=== PATIENT | female | born 1955 | race Caucasian/White ===

== ENCOUNTER 2020-07-14 06:02 | Day surgery (SDC) | payer OTHER, SELFPAY ==
--- NOTE | 2020-07-10 12:06 | EKG12_ITS ---
Test Reason : PREOP Blood Pressure : / mmHG Vent. Rate : 084 BPM Atrial Rate : 084 BPM P-R Int : 152 ms QRS Dur : 086 ms QT Int : 378 ms P-R-T Axes : 023 028 036 degrees QTc Int : 446 ms Normal sinus rhythm Normal ECG Confirmed by SERENA TRIPATHI, MARILIN ([id number]), department editor REESE GUZMAN ([id number]) on 07/14/2020 9:30:01 AM Referred By: Velma Brian Confirmed By:MARILIN LYONS MD
[2020-07-10 12:07] LABS: Hematocrit 40.1 % (37-47); Mean Corp Hgb Conc 32.4 g/dL (32-36); Mean Corpuscular Hgb 30.8 pg (27.0-32.0); Mean Platelet Vol. 9.4 fl (6.2-12.0); Platelet Count 285 K/mm3 (150-450); RBC Distribution Width CV 13.6 % (11.6-14.6); RBC Distribution Width SD 47.7 fl (35.1-43.9); Red Blood Count 4.22 M/mm3 (4.2-5.4); White Blood Count 5.9 K/mm3 (4.4-11.0)
[2020-07-10 12:26] LABS: Partial Thromboplast Time 23.3 Seconds (24.1-36.2); Prothrombin Time (Protime)PT. 12.4 SECONDS (11.7-14.9)
[2020-07-10 12:40] LABS: AST(SGOT) 18 U/L (15-37); Alanine Aminotransfer ALT/SGPT 31 U/L (13-56); Albumin, Serum 3.6 g/dL (3.2-5.0); Alkaline Phosphatase 100 U/L (45-117); Anion Gap 6 (5-15); BUN 10 mg/dL (7-18); BUN/Creat Ratio 12.4 RATIO (10-20); Bilirubin, Direct 0.08 mg/dL (0.00-0.30); Calcium,Total 8.6 mg/dL (8.5-10.1); Chloride 107 mmol/L (98-107); Creatinine, Serum 0.81 mg/dL (0.55-1.02); EST Glomerular Filtration Rate 76 mL/min (>60); Est Glom Filt Rate - Afr Amer 92 mL/min (>60); Globulin 3.6 g/dL (2.2-4.2); Glucose 139 mg/dL (74-106); Potassium 3.6 mmol/L (3.5-5.1); Protein, Total 7.2 g/dL (6.4-8.2); Sodium Level 138 mmol/L (136-145); Thyroid Stim Hormone (TSH) 1.69 uIU/mL (0.358-3.74)
[2020-07-14 06:29] VITALS: BP 120/59; PULSE 78; RESP 16; TEMP 36.6; O2SAT 97; BMI 34.4
[2020-07-14] MEDS: Lactated Ringers 1,000 ML 100 ML IV (06:36)
--- NOTE | 2020-07-14 07:30 | BLA_PTH ---
PATIENT: GIAN SARKAR [place] [facility] [id number] AGE/SX: 64/F ROOM: RE07/14/[address]: Dr. 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 Negative for malignancy. See comment. STANLEY:regan 07/15/20 COMMENT Mild eosinophilic infiltrates are also noted. Detrusor muscle is present in the specimen. MICROSCOPIC DESCRIPTION Slides are reviewed. GROSS DESCRIPTION Received in fixative is one container labeled with the patient's name and designated bladder biopsy. The specimen consists of three irregular fragments of light street soft tissue that in aggregate measure 0.4 x 0.2 x 0.1 cm. The specimen is totally submitted in one cassette. / SJ:rg 07/14/20 TC:3 CPT: 58723
--- NOTE | 2020-07-14 07:31 | PCM.OPRPT ---
Problem List (1) Interstitial cystitis (chronic) without hematuria Status: Chronic (2) Vaginismus Status: Acute (3) Urgency of micturition Status: Acute Report of Operation Date of Procedure: 07/14/20 Pre-Operative Diagnosis: interstitial cystitis without hematuria, vaginismus, urinary urgency Post-Operative Diagnosis: same, Hunner's ulcers Surgery/Procedure Performed:: cystoscopy, bladder biopsy with fulguration for hemostasis and tissue treatment, pelvic exam under anesthesia Type of Anesthesia:: General Description of Procedure: The patient is a 64-year-old female with a history of interstitial cystitis who is having a difficult time with significant urgency and pain. She also struggles with vaginismus. She is unable to undergo an exam in the office. She now presents for cystoscopic evaluation and pelvic exam under anesthesia with possible bladder biopsy possible hydrodistention. Patient was taken to the operating room and placed on the operating room table. Anesthesia monitored the head, neck, airway, IV access and vital signs throughout the case. Once anesthesia was appropriately administered the patient was placed into dorsal lithotomy position and was prepped and draped in usual sterile fashion. A pelvic examination revealed no evidence of pelvic organ prolapse. There is vaginal atrophy present. There were no trigger points identified. There is no stool in the rectal vault. There is no palpable mass. The cystoscope was inserted through the urethra under direct visualization into the urinary bladder. The bladder mucosa was visualized in its entirety. 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 3 biopsies were taken and the areas were fulgurated for hemostatic control and tissue treatment. A fourth biopsy was performed in the biopsy specimen was lost. This area was also fulgurated. The patient's bladder was then emptied and she was awakened and taken to the recovery room in good condition. There were no complications during this procedure. Grafts/Implants Used: none - Complications None - Admit VTE Documentation VTE Present on Admission: Yes VTE Mechan Device Prophylaxis: SCD's VTE Pharm Prophylaxis ordered?: No Reason prophylaxis not ordered:: Treatment Not Indicated
[2020-07-14] MEDS: Cefazolin 2 GM in 0.9% Normal Saline 100 ML IV (07:35)
[2020-07-14] MEDS: Lubricating Jelly 60 GM Tube 30 GM TOPICAL (07:50)
[2020-07-14 08:06] VITALS: BP 120/59; BP 82/51; PULSE 70; RESP 16; TEMP 36.2; O2SAT 93
[2020-07-14 08:09] VITALS: BP 114/57; BP 120/59; PULSE 76; RESP 16; O2SAT 95
--- NOTE | 2020-07-14 08:09 | PCM.DC.URO ---
Discharge Diet: No Restrictions Discharge Activity: Return to Normal Activity, May not drive while taking narcotic pain medications., May Shower, May Take a Tub Bath May resume sexual activity in: No Restrictions Call your doctor if you observe: Fever of 101 or Higher, Inability to urinate, Inability to have a bowel movement Allergies/Adverse Reactions: Allergies adhesive tape Allergy (Verified 07/08/20 08:40) Rash sulfamethoxazole [From Bactrim] Adverse Reaction (Verified 07/08/20 08:40) Nausea/Vom/Diarrhea trimethoprim [From Bactrim] Adverse Reaction (Verified 07/08/20 08:40) Nausea/Vom/Diarrhea Medications to take at Discharge Acetaminophen [Tylenol Arthritis] 1,300 mg PO DAILY 07/08/20 Albuterol Aerosols [Ventolin Aerosols] 2.5 mg INHALATION Q4H PRN PRN 07/08/20 Aloe Vera 75 mg PO DAILY 07/08/20 Amlodipine [Norvasc] 10 mg PO QHS 07/08/20 Atorvastatin Calcium [Lipitor] 10 mg PO SUWE 07/08/20 Cholecalciferol (Vitamin D3) [Vitamin D3] 150 mcg PO DAILY 07/08/20 Famotidine [Acid Controller] 20 mg PO PRN PRN 07/08/20 Fesoterodine Fumarate [Toviaz] 8 mg PO QHS 07/08/20 Fluoxetine [Prozac] 30 mg PO QHS 07/08/20 Fluticasone 0.05% [Flonase Nasal [place]] 1 spray NASAL DAILY 07/08/20 Levothyroxine Sodium [Synthroid] 25 mcg PO DAILY 07/08/20 Losartan Potassium [Cozaar] 25 mg PO QHS 07/08/20 Multivit-Min/Folic Acid/Biotin [Hair, Skin and Nails Caplet] 3 ea PO DAILY 07/08/20 Omeprazole 20 mg PO QHS 07/08/20 traZODone [Desyrel] 100 - 150 mg PO QHS 07/08/20 Cephalexin [Keflex] 500 mg PO Q12 3 Days #6 cap 07/14/20 Oxycodone HCl/Acetaminophen [Percocet 5/325] 1 tablet PO Q8H PRN PRN 7 Days #10 tablet 07/14/20 Phenazopyridine HCl [Pyridium] 200 mg PO TID PRN PRN 7 Days #30 tab 12/01/20 The following prescriptions were given: Cephalexin [Keflex] 500 mg PO Q12 3 Days #6 cap Transmission Status: Pending to [id number] Oxycodone HCl/Acetaminophen [Percocet 5/325] 1 tablet PO Q8H PRN PRN 7 Days #10 tablet PRN Reason: Pain Transmission Status: Received by [facility][id number] Phenazopyridine HCl [Pyridium] 200 mg PO TID PRN PRN 7 Days #30 tab PRN Reason: Bladder Spasms Transmission Status: Pending to [facility][id number] Primary Care Physician: CHARLIE CARBALLO [Other] Test Results: Test results from this visit will be discussed in further detail at your follow-up appointment, if applicable. Please Follow Up With: Velma Brian MD When: call for appt to be seen in 1 week. Proposed Discharge Date: 07/14/20
[2020-07-14 08:15] VITALS: BP 106/65; BP 120/59; PULSE 76; RESP 16; O2SAT 96
[2020-07-14 08:25] VITALS: BP 120/59; BP 125/76; PULSE 73; RESP 16; TEMP 36.3; O2SAT 94
[2020-07-14] MEDS: Phenazopyridine 95 MG Tablet 190 MG PO (08:36)
[2020-07-14] MEDS: Acetaminophen 325 MG Tablet PO (08:55)
[2020-07-14] MEDS: oxyCODONE 5 MG Tablet PO (08:55)
[2020-07-14 09:30] VITALS: BP 113/59; BP 120/59; PULSE 82; RESP 16; TEMP 36.2; O2SAT 94
== END 2020-07-14 09:51 | disposition home or self-care (01) ==
LOC: SDC 06:05 → AC 06:05
PROVIDERS: Anesthesiology; Referring Provider Urology; Visit Provider Urology
PROC: 0TBB8ZX Excision of Bladder, Via Natural or Artificial Opening Endoscopic, Diagnostic (ICD-10-PCS; CPT 52204; principal; 2020-07-14 07:20)
DX: N30.10 Interstitial cystitis (chronic) without hematuria (principal); N94.2 Vaginismus; Z20.828 Contact with and (suspected) exposure to other viral communicable diseases; I10 Essential (primary) hypertension; K21.9 Gastro-esophageal reflux disease without esophagitis; E78.00 Pure hypercholesterolemia, unspecified; E03.9 Hypothyroidism, unspecified; M79.7 Fibromyalgia; J45.909 Unspecified asthma, uncomplicated; N32.81 Overactive bladder; Z78.0 Asymptomatic menopausal state; Z87.440 Personal history of urinary (tract) infections; Z79.899 Other long term (current) drug therapy
CPT/HCPCS: 00910; 52204; 57410; 36415; 80048; 80076; 84443; 85027; 85610; 85730; 87426; 88305; 93005; C9803; J7120; J2405

== ENCOUNTER 2022-04-14 05:46 | Day surgery (SDC) | payer MEDICARE, OTHER, SELFPAY ==
[2022-04-14] VITALS (8 sets, daily range): BP systolic 101–131; BP diastolic 52–95; PULSE 70–84; RESP 16–18; TEMP 36.1–36.7; O2SAT 63–95; BMI 35.4
--- NOTE | 2022-04-14 | BLA_PTH ---
PATIENT: GIAN SARKAR [place] [facility] [place][id number] AGE/SX: 66/F ROOM: RE04/14/[address]: Dr. 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 Minimal acute inflammation. Focal epithelial atypia, favor reactive. Negative for malignancy. See comment. STANLEY:regan 04/15/2022 COMMENT The specimen shows denuded epithelium in most of the specimen. Detrusor muscle is not present in the specimen. 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 MICROSCOPIC DESCRIPTION Slides are reviewed. GROSS DESCRIPTION Received in fixative is one container labeled with the patient's name and designated bladder biopsy. The specimen consists of two irregular fragments of light street soft tissue that in aggregate measure 0.2 x 0.1 x 0.1 cm. The specimen is totally submitted in one cassette. / STANLEY:regan 04/14/2022 TC:3 CPT: 78630
[2022-04-14] MEDS: Lactated Ringers 1,000 ML 15 ML IV (06:38)
[2022-04-14] MEDS: Cefazolin 2 GM in 0.9% Normal Saline 100 ML IV (07:29)
--- NOTE | 2022-04-14 07:34 | PCM.OPRPT ---
Problems Associated Problem List Diagnoses (1) Interstitial cystitis (chronic) without hematuria: Report of Operation Date of Procedure: 04/14/22 Pre-Operative Diagnosis: Interstitial cystitis, urge incontinence, urinary tract infection Post-Operative Diagnosis: Same, Hunner's ulcers Surgery/Procedure Performed:: Cystoscopy, bladder biopsy x2 with fulguration Surgeon: Velma Brian Type of Anesthesia: MAC Specimen's removed: Bladder biopsy x2 Description of Procedure: Patient is a 66-year-old female with interstitial cystitis who is not been doing well with bladder symptoms recently. Informed consent was obtained to proceed with cystoscopy, possible biopsy with fulguration versus hydrodistention. The patient was taken to the operating room and placed on the operating room table. Anesthesia monitored the head, neck, airway, IV access and vital signs throughout the case. Once anesthesia was appropriately administered, the patient was placed into dorsolithotomy position was prepped and draped in usual sterile fashion. The cystoscope was inserted through the urethra under direct visualization into the urinary bladder. There were 2 ulcerations identified in the posterior bladder wall. The remainder of the bladder was somewhat erythematous without definitive ulceration. Both sites of ulceration were biopsied and the areas were fulgurated for hemostatic control and tissue treatment. Once hemostasis was obtained, the patient's bladder was emptied and the cystoscope was removed. The patient was awakened and taken to the recovery room in good condition. There were no complications during this procedure. Grafts/Implants Used: None Complications None Admit VTE Documentation VTE Present on Admission: Yes VTE Mechan Device Prophylaxis: SCD's VTE Pharm Prophylaxis ordered?: No Reason prophylaxis not ordered:: Treatment Not Indicated
--- NOTE | 2022-04-14 07:35 | DCINST_ITS ---
Discharge Instructions Diet Discharge Diet: No restrictions Activity Discharge Activity: Return to Normal Activity Dressing / Incision Call your doctor if you observe: Fever of 101 or Higher, Inability to urinate and Inability to have a bowel movement Follow Up Care Please Follow Up With: Velma Brian MD When: In 2 to 3 weeks, call office for appointment Test Results: Test results from this visit will be discussed in further detail at your follow- up appointment, if applicable. Discharge Plan Admission Attending Provider: Velma Brian Primary Care Provider: CHARLIE CARBALLO Discharge Orders/Prescriptions Prescriptions: New oxycodone-acetaminophen [oxycodone-acetaminophen] 5-325 mg tablet 2 tab PO Q8H PRN PRN (Reason: Pain) 7 Days Qty: 20 0RF cephalexin [cephalexin] 500 mg capsule 500 mg PO Q12 3 Days Qty: 6 0RF Continued albuterol sulfate 2.5 MG/3 ML solution for nebulization 2.5 mg INHALATION Q4H PRN PRN (Reason: Sob &/Or Wheezing) levothyroxine 25 MCG tablet 25 mcg PO DAILY acetaminophen 650 MG tablet extended release 1,300 mg PO BID famotidine 20 MG tablet 20 mg PO BID trazodone 100 MG tablet 100 - 150 mg PO QHS amlodipine 10 MG tablet 10 mg PO QHS losartan 25 MG tablet 25 mg PO DAILY omeprazole 20 MG capsule,delayed release(DR/EC) 20 mg PO QHS fluoxetine 20 MG capsule 20 mg PO QHS fluticasone propionate 1 SPRAY spray,suspension 1 spray NASAL PRN PRN (Reason: ALLERGIES) cholecalciferol (vitamin D3) 125 MCG capsule 50 mcg PO DAILY aloe vera 25 MG capsule 75 mg PO DAILY fesoterodine 8 MG tablet extended release 24 hr 8 mg PO QHS cephalexin 250 mg capsule 250 mg PO QHS Label Comments: TAKE 1 CAPSULE BY MOUTH EVERYDAY AT BEDTIME melatonin 3 mg Tablet 3 mg PO QHS Hair,Skin and Nails Tablet 2 tab PO DAILY methen-sod phos-meth blue-hyos [Urogesic-Blue] 81.6-40.8-0.12 mg Tablet 1 tab PO BID Probiotic 5 billion cell Capsule, Sprinkle 1 cap PO DAILY Gemtesa 75 mg Tablet 75 mg PO DAILY aspirin 81 mg Capsule 81 mg PO DAILY Referrals / Follow Up: CHARLIE CARBALLO [Other] Disposition Disposition (needs filled in before D/C Order can be placed): Home, Self Care
[2022-04-14] MEDS: oxyCODONE 5 MG Tablet 10 MG PO (09:11)
[2022-04-14] MEDS: Acetaminophen 325 MG Tablet 650 MG PO (09:11)
== END 2022-04-14 09:51 | disposition home or self-care (01) ==
LOC: SDC 05:49 → AC 05:51
PROVIDERS: Referring Provider Urology; Visit Provider Urology
PROC: 0T7B7ZZ Dilation of Bladder, Via Natural or Artificial Opening (ICD-10-PCS; CPT 52204; principal; 2022-04-14 07:20)
DX: N30.10 Interstitial cystitis (chronic) without hematuria (principal); N39.41 Urge incontinence; J45.909 Unspecified asthma, uncomplicated; E03.9 Hypothyroidism, unspecified; M79.7 Fibromyalgia; I10 Essential (primary) hypertension; Z79.899 Other long term (current) drug therapy; N95.2 Postmenopausal atrophic vaginitis; K21.9 Gastro-esophageal reflux disease without esophagitis; K76.0 Fatty (change of) liver, not elsewhere classified; E78.00 Pure hypercholesterolemia, unspecified; G47.30 Sleep apnea, unspecified; Z78.0 Asymptomatic menopausal state
CPT/HCPCS: 52204; 00910; 88305; J7120; J2405